=== PATIENT | female | born 1990 | race Hispanic/Latino ===

== ENCOUNTER 2017-07-23 22:38 | Emergency (ER) | payer OTHER ==
[2017-07-23 22:44] VITALS: RESP 18; O2SAT 100
[2017-07-23] MEDS ORDERED: DiphenhydrAMINE 50 mg/ml Inj IVP STA (22:58)
[2017-07-23] MEDS ORDERED: Clindamycin 300 MG in Sodium Chloride 0.9% 50 ML IVPB STA (22:58)
--- NOTE | 2017-07-23 23:01 | ED PDOC ---
HPI: Skin/Bite Injury Time Seen by Provider: 07/23/17 22:55 Chief Complaint (Nursing): Abnormal Skin Integrity Chief Complaint (Provider): Bites History Per: Patient Additional Complaint(s): 27 yo female, PMH of HTN, presents to ED with complaints of multiple insect bites to bilateral lower extremities producing redness, swelling and now pain. Pt took Benadryl at home in the Am, no relief. Past Medical History Reviewed: Nursing Documentation, Vital Signs Vital Signs: Last Vital Signs Temp 98.9 F 07/24/17 00:06 Pulse 70 07/24/17 00:06 Resp 18 07/24/17 00:06 BP 133/77 07/24/17 00:06 Pulse Ox 100 07/24/17 00:06 - Medical History PMH: No Chronic Diseases - Surgical History Surgical History: No Surg Hx - Family History Family History: States: No Known Family Hx - Living Arrangements Living Arrangements: With Family - Social History Current smoker - smoking cessation education provided: No Alcohol: Social Drugs: Denies - Home Medications Home Medications: Ambulatory Orders Medication Instructions Recorded Clindamycin [Cleocin] 300 mg PO BID #14 cap 07/23/17 Methylprednisolone [Medrol Dose 4 mg PO DAILY #21 mg 07/24/17 Pack (21 tabs)] - Allergies Allergies/Adverse Reactions: Allergies Allergy/AdvReac Type Severity Reaction Status Date / Time clarithromycin [From Biaxin] Allergy RASH Verified 07/23/17 23:45 Review of Systems ROS Statement: Except As Marked, All Systems Reviewed And Found Negative Skin: Positive for: Rash Physical Exam - Reviewed Nursing Documentation Reviewed: Yes Vital Signs Reviewed: Yes - Physical Exam Appears: Positive for: Well, Non-toxic, No Acute Distress Head Exam: Positive for: ATRAUMATIC, NORMAL INSPECTION, NORMOCEPHALIC Skin: Positive for: Normal Color, Warm, DRY Eye Exam: Positive for: EOMI, Normal appearance, PERRL ENT: Positive for: Normal ENT Inspection Neck: Positive for: Normal, Painless ROM Cardiovascular/Chest: Positive for: Regular Rate, Rhythm Respiratory: Positive for: CNT, Normal Breath Sounds Gastrointestinal/Abdominal: Positive for: Normal Exam, Bowel Sounds, Soft Back: Positive for: Normal Inspection Extremity: Positive for: Tenderness, Swelling, Other (erythema and multiple bites noted to lateral aspect of Left foot) Neurologic/Psych: Positive for: Alert, Oriented - Laboratory Results Result Diagrams: 07/23/17 23:42 07/23/17 23:42 - ECG O2 Sat by Pulse Oximetry: 100 Medical Decision Making Medical Decision Making: IV access established and treatment initiated with Clindamycin, Benadryl and Solumedrol Diagnostics ordered Labs resulted and reviewed with Pt who demonstrated full understanding Stable for discharge with outpt therapy trail at this time Pt advised to return to ED if at anytime condition worsens Disposition - Clinical Impression Clinical Impression: Cellulitis, Insect bites - Patient ED Disposition Is Patient to be Admitted: No - Disposition Disposition: Routine/Home Disposition Time: 23:50 Condition: STABLE Prescriptions: Clindamycin [Cleocin] 300 mg PO BID #14 cap Methylprednisolone [Medrol Dose Pack (21 tabs)] 4 mg PO DAILY #21 mg Instructions: Cellulitis (ED), Insect Bite or Sting (ED) Forms: [employer] ([place])
[2017-07-23] MEDS ORDERED: DiphenhydrAMINE 50 mg/ml Inj ONE (23:07)
[2017-07-23 23:46] LABS: BASO % 0.5 % (0.0-2.0); EOS # 0.3 K/uL (0.0-0.7); EOS % 3.2 % (0.0-4.0); HEMATOCRIT 39.3 % (34.0-47.0); LYMPH # 3.3 K/uL (1.0-4.3); LYMPH % 35.1 % (20.0-40.0); MEAN CORPUSCULAR HEMOGLOBIN 28.7 pg (27.0-31.0); MEAN PLATELET VOLUME 9.3 fl (7.2-11.7); MONO # 0.8 K/uL (0.0-0.8); MONO % 8.7 % (0.0-10.0); NEUT % 52.5 % (50.0-75.0); NRBC % 0.1 % (0.0-0.0); RED CELL DISTRIBUTION WIDTH 13.6 % (11.5-14.5); WHITE BLOOD COUNT 9.5 K/uL (4.8-10.8)
[2017-07-23 23:55] LABS: ALB/GLOB RATIO 1.6 (1.0-2.1); ALKALINE PHOSPHATASE 52 U/L (38-126); ALT/SGPT 30 U/L (9-52); AST/SGOT 34 U/L (14-36); BILIRUBIN,TOTAL 0.5 mg/dl (0.2-1.3); BLOOD UREA NITROGEN 22 mg/dl (7-17); CALCIUM 9.9 mg/dL (8.4-10.2); CARBON DIOXIDE 22 mmol/L (22-30); CHLORIDE 105 mmol/L (98-107); GFR AFRICAN-AMERICAN > 60; GLUCOSE,RANDOM 102 mg/dL (65-105); POTASSIUM 3.7 MMOL/L (3.6-5.0); SODIUM 139 mmol/l (132-148); TOTAL PROTEIN 7.2 G/DL (6.3-8.2)
[2017-07-24 00:07] VITALS: BP 133/77; PULSE 70; TEMP 98.9
== END 2017-07-24 00:08 | disposition home or self-care (01) ==
LOC: H.ER 22:38
DX: T14.8 Other injury of unspecified body region (principal); W57.XXXA Bitten or stung by nonvenomous insect and other nonvenomous arthropods, initial encounter; Y92.89 Other specified places as the place of occurrence of the external cause
CPT/HCPCS: 80053; 85025; 87040; 96374; 96375; 99282; J1200; J2930